=== PATIENT | female | born 1990 | race Caucasian/White ===

== ENCOUNTER 2017-11-04 10:25 | Emergency (ER) | payer MEDICAID ==
[2017-11-04 10:36] VITALS: BP 111/68
[2017-11-04] MEDS ORDERED: PHENAZOPYRIDINE 200 MG TABLET ONE (11:26)
[2017-11-04] MEDS ORDERED: ONDANSETRON ODT 4 MG ONE (11:28)
[2017-11-04 11:29] LABS: MICROSCOPIC INDICATED
[2017-11-04] MEDS ORDERED: ONDANSETRON ODT 4 MG PO ONE (11:30)
[2017-11-04] MEDS ORDERED: PHENAZOPYRIDINE 200 MG TABLET PO ONE (11:30)
[2017-11-04 11:44] LABS: CULTURE INDICATED? YES
[2017-11-04 11:48] LABS: HCG UR SG 1.032 (1.003-1.030)
== END 2017-11-04 12:31 | disposition home or self-care (01) ==
LOC: ED 12:20
DX: N30.00 Acute cystitis without hematuria (principal)
CPT/HCPCS: 81001; 81025; 87086; 99284; Q0162